=== PATIENT | female | born 1990 | race Caucasian/White ===

== ENCOUNTER 2025-07-20 06:00 | Emergency (ER) | payer OTHER, SELFPAY ==
--- NOTE | 2025-07-20 | CRLHL7_ITS ---
For Patients: As a result of the Century Cures Act, medical imaging exams and procedure reports are released immediately into your electronic medical record. You may view this report before your referring provider. If you have questions, please contact your health care provider. Indication: Abnormal CT. Technique: Sonography of the pelvis was performed. The study was performed transabdominally and transvaginally. Grayscale imaging was provided as well as color and spectral Doppler. The transvaginal portion of the study was performed to better evaluate the myometrial echotexture. Comparison: The CT from earlier the same day Findings: The uterus is enlarged measuring 10.2 x 4.5 x 5.4 centimeters. Echotexture is markedly heterogeneous. The shadowing pattern has imaging features of both diffuse myomatous involvement uterine adenomyosis. There are measurable distinct masses that likely represent myomas. For example, a hypoechoic area near the fundus on the right is probably a subserosal myoma. A hypoechoic mass on the left is probably a broad ligament myoma measuring 2.1 x 1.6 x 2.3 centimeters. There are nabothian cysts in the endocervical canal The ovaries are normal in size. The right ovary measures 3.2 x 1.9 x 2.1 centimeters and the left ovary measures 2.9 x 1.4 x 2.8 centimeters. The endometrium measures 5.1 millimeters. This is not thickened. No focal abnormality. No significant free fluid in the cul-de-sac Impression: 1. Abnormal uterus. It is enlarged, bulky and heterogeneous. The findings suggest a combination of diffuse myomatous involvement and probable adenomyosis. The appearance of the myometrium is abnormal but nonspecific but likely due to the 2 abnormalities mentioned above. Consider further imaging by contrast-enhanced MRI at a clinically appropriate time 2. The endometrium is not thickened. 3. The ovaries are normal in size. Ovarian Doppler is normal without evidence of torsion 4. No free fluid in the cul de sac Dictated by Todd Duval MD @ 07/20/2025 9:08:23 AM (Electronically Signed)
[2025-07-20 06:06] VITALS: BP 145/91; PULSE 77; RESP 16; TEMP 36.6; O2SAT 98; BMI 28.9
[2025-07-20 06:13] LABS: Appearance Urine Slightly Cloudy (Clear)
--- NOTE | 2025-07-20 06:25 | CRLHL7_ITS ---
For Patients: As a result of the 21st Century Cures Act, medical imaging exams and procedure reports are released immediately into your electronic medical record. You may view this report before your referring provider. If you have questions, please contact your health care provider. INDICATION: Lower abdominal pain. Prior appendectomy. COMPARISON: None TECHNIQUE: CT examination of the abdomen and pelvis was performed following the uneventful intravenous administration of 75 cc of Isovue 370. Thin section axial images were obtained from the lung bases through the pubic symphysis. Oral contrast was not administered. Please note that all CT scans at this facility use dose modulation, iterative reconstruction, and/or weight-based dosing when appropriate to reduce radiation dose to as low as reasonably achievable. FINDINGS: LUNG BASES: Left lower lobe granuloma.The heart size is normal at the lung bases. LIVER/BILIARY SYSTEM:Focal fat at the falciform ligament. Indeterminate mass in the left lobe of the liver measuring 2.1 centimeters. No biliary ductal dilation.The gallbladder appears normal ADRENALS: Normal KIDNEYS, URETERS and BLADDER:Right renal cyst. Kidneys otherwise unremarkable. No obstructive uropathy. No calculi. The bladder appears normal SPLEEN:Low-density splenic lesion measuring 5 centimeters. This is probably a cyst. PANCREAS: Appears normal. RETROPERITONEUM and MESENTERY: There is no mass, adenopathy or aortic aneurysm. GASTROINTESTINAL SYSTEM: There is no evidence of diverticulitis, colitis, mechanical obstruction, or appendicitis. The small bowel as visualized appears normal. PELVIS: Enlarged, heterogeneous and nodular appearing uterus consistent with myomatous involvement. There also likely nabothian cysts in the endocervical canal.. OSSEOUS STRUCTURES and ABDOMINAL WALL: There is an age-appropriate appearance of the osseous structures.No significant abdominal wall defect. OTHER: No free fluid or free air. IMPRESSION: 1. Indeterminate mass in the left lobe of the liver measuring 2.1 centimeters. Recommend follow-up evaluation such as multiphase MRI to further characterize this lesion in the nonacute care setting. 2. Enlarged heterogeneous and nodular appearing uterus probably due to diffuse myomatous involvement. Probable nabothian cysts in the endocervical canal. 3. Other incidental nonacute appearing findings as discussed in the body of the report. Please note that all CT scans at this facility use dose modulation, iterative reconstruction, and/or weight-based dosing when appropriate to reduce radiation dose to as low as reasonably achievable. Dictated by Todd Duval MD @ 07/20/2025 7:03:47 AM (Electronically Signed)
[2025-07-20 06:26] LABS: Ur HCG Qualitative* Negative (Negative)
--- NOTE | 2025-07-20 06:26 | ED_ITS ---
HPI - General Adult General Chief complaint: Abdominal Pain Stated complaint: abdominal pain Time Seen by Provider: 07/20/25 06:14 Source: patient Mode of arrival: ambulatory Limitations: no limitations History of Present Illness HPI narrative: Open 35-year-old female presents with 48 hours of suprapubic/right lower abdominal pain even radiating into the right inguinal area. No trauma or injury. No fever. Has been having loose stools the last few days, not terribly uncommon since she has been on her menstrual cycle but says that she feels bloated and abdomen feels distended when she tries to eat, appetite has been a little decreased. Menstrual cycle is ending, normal flow. No history of kidney stones. No dysuria. Has had a prior appendectomy. Has had a tubal ligation. This and the appendectomy are her only abdominal surgeries. No bloody stools. No prior colonoscopy. Has been using Midol with no improvement, has been applying heat which does temporarily help. Pain is achy and constant. Does seem worse with movements, becomes sharp. Not worse with bowel movements, not worse with eating. Does have a history of ovarian cysts, wonders if this could be related. No nausea and vomiting. Reports past medical history is benign, no major long-term health problems. No prescription medications. Has an allergy to nickel but no medications. GI surgeries as above. ROS is notable for the abdominal symptoms only, otherwise denies times 12 systems. Related Data Home Medications ?Medication ?Instructions ?Recorded ?Confirmed No Known Home Medications 07/20/2507/06 Allergies Allergy/AdvReac Type Severity Reaction Status Date / Time nickel Allergy Mild Rash Verified 07/20/25 06:53 [facility] Social History Smoking Status: Never smoker Second hand tobacco smoke exposure: No How often do you have a drink containing alcohol: never AUDIT-C Alcohol total score: 0 Non-prescribed substance use: denies use Exam Const: Vital Signs, click to edit/add: Vital Signs - 24 hr 07/20/25 06:06 Temperature 97.8 F Pulse Rate [Pulse Oximeter] 77 Respiratory Rate 16 Blood Pressure [Ri ght Upper Arm] 145/91 H Pulse Oximetry 98 Oxygen Delivery Me thod Room Air Documenting provider has reviewed patient's vital signs: yes Common normals: no apparent distress and alert General appearance: cooperative and well kempt HENMT: Common normals: normocephalic, moist oral mucous membranes and oropharynx normal Head and scalp: normocephalic Face and sinus: normal facial exam Eye: Common normals: conjunctivae normal General eye: normal appearance of both eyes Conjunctiva: conjunctiva(e) normal Neck & C-Spine: Common normals: full ROM and no lymphadenopathy General: normal visual inspection Resp: Common normals: normal respiratory effort, no use of accessory muscles and clear to auscultation bilaterally Effort & inspection: able to speak in complete sentences Auscultation: clear to auscultation bilaterally Cardio: Common normals: regular rate, regular rhythm, S1 normal heart sound, S2 normal heart sound and no murmurs Rate: regular rate Rhythm: regular rhythm Heart sounds: S1 normal and S2 normal GI: Common normals: Normal to inspection, nondistended, normoactive bowel sounds present, soft to palpation, no hepatosplenomegaly and no masses Palpation: soft and no hepatosplenomegaly Other: Tender to suprapubic, left lower quadrant and right lower quadrant abdomen. No mass or hernia noted. : Common normals: no CVA tenderness Bladder/kidney exam: no CVA tenderness Back & Pelvis: Common normals: no CVA tenderness Extremity: Common normals: normal to inspection and normal capillary refill Neuro: Sensorium/orientation: alert Speech: speech normal Motor exam: strength 5/5 throughout Psych: Appearance: well kempt Attitude: engaged Activity/motor behavior: appropriate eye contact Insight: insight good Judgement: judgment good Skin: Common normals: no rashes or lesions noted General skin exam: no rashes or lesions noted Course Course ED Course: 35-year-old female with lower abdominal pain, history of ovarian cysts. Also h aving some loose stools, bloating suggestive of GI process. Cannot exclude ovarian cysts, uterine fibroids, pelvic infection, kidney stones, urinary tract infection, colitis, musculoskeletal etiology, enteritis, amongst others. Because she has also been GI symptoms, recommend proceeding with CT scan primarily over pelvic ultrasound. We do not have pelvic ultrasound here quite yet this morning but will within about an hour if needed. Will place peripheral IV, obtain basic intra-abdominal labs. Urinalysis and test pending, unlikely with history of tubal ligation. Reevaluation(s) Time of Reevaluation #1: 07:24 Reevaluation #1: Elevated C-reactive protein, remainder of labs are otherwise unremarkable. Counseled patient on findings of CT. The liver lesion has an overall benign appearance, likely a hemangioma. Patient given a copy of report to workup outpatient. Discussed that this will not be worked up in the acute care setting. Reviewed the pertinent finding which is the abnormalities within the uterus. Suspect this is adenomyosis or unusual fibroid. I do think this is likely the source of her pain. Thankfully there are not any other abnormalities. Counseled patient to better clarify this, I would need a ultrasound. This is ordered. She will likely go down for this around the end of my shift, will plan to hand over care to incoming day shift partner. If there are significant abnormalities, please consult Gynecology. Otherwise please set patient up to see gynecology outpatient with prescription for NSAIDs. Update: End of shift, handing over care to incoming day shift partner, ultrasound results pending. Vital Signs Vital signs: Initial Vital Signs Temperature 97.8 F 07/20/25 06:06 Temperature Source Temporal Artery Scan 07/20/25 06:06 Pulse Rate 77 07/20/25 06:06 Respiratory Rate 16 07/20/25 06:06 Blood Pressure 145/91 H 07/20/25 06:06 Blood Pressure Mean 109 H 07/20/25 06:06 Blood Pressure Position Sitting 07/20/25 06:06 Pulse Oximetry 98 07/20/25 06:06 Oxygen Delivery Method Room Air 07/20/25 06:06 Vital Signs Temperature 97.8 F 07/20/25 06:06 Pulse Rate 77 07/20/25 06:06 Respiratory Rate 16 07/20/25 06:06 Blood Pressure 145/91 H 07/20/25 06:06 Pulse Oximetry 98 07/20/25 06:06 Oxygen Delivery Method Room Air 07/20/25 06:06 Temperature 97.8 F 07/20/25 06:06 Pulse Rate 57 L 07/20/25 07:59 Respiratory Rate 16 07/20/25 07:59 Blood Pressure 118/81 07/20/25 07:59 Pulse Oximetry 96 07/20/25 07:59 Oxygen Delivery Method Room Air 07/20/25 07:59 Medications Administered Medications: Discontinued Medications Generic Name Dose Route Start Last Admin Trade Name Freq PRN Reason Stop Dose Admin Ketorolac Tromethamine 10 mg 07/20/25 07:14 07/20/25 07:19 Ketorolac 10 Mg Tablet PO 07/20/25 07:15 10 mg ONCE ONE Administration Medical Decision Making Lab Data Lab results reviewed: Yes I reviewed the patient's lab results Lab results narrative: Labs reasonably unremarkable. There is a slight leukocytosis and elevation of C-reactive protein. Urinalysis does have blood but she is on her menses. Remainder unremarkable. Labs: Lab Results 07/20/25 07/20/25 Range/Units 06:08 06:30 WBC 12.11 H (4.50-11.00) K/uL RBC 4.63 (4.00-5.20) m/uL Hgb 13.5 (12.0-16.0) gm/dL Hct 40.7 (33.0-51.0) % MCV 88 (80-100) fL MCH 29 (26-34) pg MCHC 33 (32-36) gm/dL RDW Coeff of Carlie 12.2 (11.5-15.5) % Plt Count 284 (140-440) K/uL Neut % (Auto) 80.9 H (42.0-72.0) % Lymph % (Auto) 13.0 L (20-44) % [place] % (Auto) 5.0 (0.0-11.0) % Eos % (Auto) 0.2 (0.0-7.0) % Baso % (Auto) 0.1 (0.0-3.0) % Neut # (Auto) 9.80 H (1.7-7.0) K/uL Lymph # (Auto) 1.60 (0.90-2.90) K/uL [place] # (Auto) 0.60 (0.00-0.90) K/UL Eos # (Auto) 0.00 (0.00-0.50) K/uL Baso # (Auto) 0.00 (0.00-0.30) K/uL Abs Immat Gran (auto) 0.10 (0.00-0.30) K/uL Imm/Tot Granulo (auto) 0.8 % Sodium 138 (135-149) mmol/L Potassium 3.7 (3.6-5.1) mmol/L Chloride 106 (96-114) mmol/L Carbon Dioxide 25 (20-32) mmol/L Anion Gap 7 (7-15) mEq/L BUN 10 (5-24) mg/dL Creatinine 0.7 (0.5-1.5) mg/dL Estimated Creat Clear 85.45 Estimated GFR 116 ml/min Glucose 109 (60-115) mg/dL Lactate 0.8 (0.5-1.9) mmol/L Calcium 9.1 (8.4-10.6) mg/dL Total Bilirubin 0.5 (0.1-1.5) mg/dL AST 21 (12-35) U/L ALT 13 (4-35) U/L Alkaline Phosphatase 54 (40-150) U/L C-Reactive Protein 8.2 H (0.5-1.0) mg/dL Total Protein 7.5 (6.0-8.3) g/dL Albumin 4.2 (3.3-5.0) g/dL Lipase 57 (23-300) U/L Urine Color Yellow (Yellow) Urine Appearance Slightly Cloudy A (Clear) Urine pH 5.5 (5.0-8.5) Ur Specific [place] 1.025 (1.000-1.030) Urine Protein Negative (Negative) Urine Glucose (UA) Negative (Negative) Urine Ketones 2+ A (Negative) Urine Blood 2+ A (Negative) Urine Nitrite Negative (Negative) Urine Bilirubin Negative (Negative) Urine Urobilinogen 0.2 (0.2-1.0) Ur Leukocyte Esterase 1+ A (Negative) Urine RBC 0-2 (0-2) Urine WBC 2-5 (0-5) Ur Squamous Epith Cells Few (None-Few) Amorphous Sediment Few A (None) Urine Bacteria Few A (None) Urine HCG, Qual Negative (Negative) Imaging Data CT scan - abdomen: Attestation: I have reviewed the pertinent imaging results. My impression: Ovarian verses uterine complex mass. Remainder of study unremarkable Radiologist's impression: IMPRESSION: 1. Indeterminate mass in the left lobe of the liver measuring 2.1 centimeters. Recommend follow-up evaluation such as multiphase MRI to further characterize this lesion in the nonacute care setting. 2. Enlarged heterogeneous and nodular appearing uterus probably due to diffuse myomatous involvement. Probable nabothian cysts in the endocervical canal. 3. Other incidental nonacute appearing findings as discussed in the body of the report. Pelvic ultrasound: Attestation: I have reviewed the pertinent imaging results. Radiologist's impression: Impression: 1. Abnormal uterus. It is enlarged, bulky and heterogeneous. The findings suggest a combination of diffuse myomatous involvement and probable adenomyosis. The appearance of the myometrium is abnormal but nonspecific but likely due to the 2 abnormalities mentioned above. Consider further imaging by contrast-enhanced MRI at a clinically appropriate time 2. The endometrium is not thickened. 3. The ovaries are normal in size. Ovarian Doppler is normal without evidence of torsion 4. No free fluid in the cul de sac Dictated by Todd Duval MD @ 07/20/2025 9:08:23 AM Discharge Plan Discharge Clinical Impression: Adenomyosis Patient Disposition: Home, Self-Care Condition: Stable Instructions: Uterine Fibroids (ED) Additional Instructions: Please follow-up regarding this pain, findings in your imaging as discussed and recommendations for further management with Women's Health or other primary provider with this focus. Naproxen sodium, as you mentioned can be purchased [id number]. Can take up to 500 mg twice a day. He said ketorolac really helped so prescribing saw this from [facility] as well. Do not take the ketorolac at the same time you would be taking naproxen sodium. And as discussed, will provide some [place] from [facility] if needed. This can be combined with naproxen or ibuprofen. Prescriptions: No Action No Known Home Medications Follow Up/Referrals: Provider,Not a Local [Primary Care Provider, Family Practice] Stand Alone Forms: i-marker Info Instructions
[2025-07-20 06:37] LABS: Lactate* 0.8 mmol/L (0.5-1.9)
[2025-07-20 06:38] LABS: Hematocrit* 40.7 % (33.0-51.0); Hemoglobin* 13.5 gm/dL (12.0-16.0); Immature Granulocytes Abs Auto 0.10 K/uL (0.00-0.30); Immature Granulocytes Pct Auto 0.8 %; Mean Corpuscular HGB Conc 33 gm/dL (32-36); Mean Corpuscular Hemoglobin 29 pg (26-34); Mean Corpuscular Volume 88 fL (80-100); RDW Coefficient of Variation % 12.2 % (11.5-15.5); Red Blood Count* 4.63 m/uL (4.00-5.20); White Blood Count* 12.11 K/uL (4.50-11.00)
[2025-07-20 06:44] LABS: Lymphocytes Absolute Auto 1.60 K/uL (0.90-2.90); Slide Review Reflex No
[2025-07-20 06:52] LABS: Albumin* 4.2 g/dL (3.3-5.0); Chloride* 106 mmol/L (96-114); Sodium* 138 mmol/L (135-149)
[2025-07-20 06:53] LABS: Potassium* 3.7 mmol/L (3.6-5.1)
[2025-07-20 06:55] LABS: Alanine Aminotransferase* 13 U/L (4-35); Aspartate Amino Transferase* 21 U/L (12-35); Blood Urea Nitrogen* 10 mg/dL (5-24); Creatinine* 0.7 mg/dL (0.5-1.5); Est. Creatinine Clearance* 85.45; Estimated Glomerular Filt Rate 116 ml/min
[2025-07-20 06:56] LABS: Alkaline Phosphatase* 54 U/L (40-150); Anion Gap 7 mEq/L (7-15); Bilirubin Total* 0.5 mg/dL (0.1-1.5); Calcium* 9.1 mg/dL (8.4-10.6); Carbon Dioxide* 25 mmol/L (20-32); Glucose* 109 mg/dL (60-115); Total Protein* 7.5 g/dL (6.0-8.3)
[2025-07-20] MEDS: KETOROLAC 10 MG TABLET PO (07:19)
[2025-07-20 07:59] VITALS: BP 118/81; PULSE 57; RESP 16; O2SAT 96
== END 2025-07-20 09:45 | disposition home or self-care (01) ==
PROVIDERS: Emergency Provider Family Medicine
DX: N80.03 Adenomyosis of the uterus (principal)
CPT/HCPCS: 36415; 74177; 76830; 76856; 80053; 81001; 81025; 83605; 83690; 85025; 86140; 87086; 93976; 99284; A9270; Q9967